=== PATIENT | male | born 1955 | race African-American/Black ===

== ENCOUNTER 2018-03-04 16:42 | Inpatient (IN) ==
[2018-03-04] MEDS ORDERED: LACTATED RINGERS 1,000 ML IV STA (16:54)
[2018-03-04 17:07] LABS: Basophils % 0.2 % (0.0-0.8); Eosinophils # 0.1 10*3/uL (0.0-0.87); Eosinophils % 0.5 % (0.00-10.9); Hematocrit 34.6 VOL% (42.0-52.0); Hemoglobin 11.5 GM/DL (14.0-18.0); Immature Granulocytes % 0.5 %; Immature Granulocytes Absolute 0.06 #; Lymphocytes # 1.2 10*3/uL (1.4-4.0); Lymphocytes % 9.6 % (21.2-54.2); Mean Corpuscular HGB Conc 33.2 GM/DL (32-36); Mean Corpuscular Hemoglobin 30 PG (27-34); Mean Corpuscular Volume 89.9 FL (87-102); Mean Platelet Volume 9.3 FL (9.6-12.0); Monocytes # 0.8 10*3/uL (0.11-0.8); Monocytes % 6.1 % (1.7-12.7); Neutrophils # 10.3 10*3/uL (1.4-7.4); Neutrophils % 83.1 % (38.7-73.9); Platelet Count 248 T/CUMM (130-400); Red Blood Count 3.85 MC/CUMM (3.8-5.5); Red Cell Distribution Width 12.4 % (9.3-17.3); White Blood Count 12.4 T/CUMM (4-12)
[2018-03-04 17:17] LABS: INR 0.9; PT Patient Result 9.9 SECS; Partial Thromboplastin Time 21.7 SECS (0-40)
[2018-03-04 17:23] LABS: Lactic Acid 1.8 MMOL/L (0.4-2.0)
[2018-03-04 17:24] LABS: Alanine Aminotransferase 108 U/L (16-61); Albumin 3.2 G/DL (3.4-5.0); Alkaline Phosphatase 106 U/L (45-117); Amylase 81 U/L (25-115); Aspartate Amino Transferase 114 U/L (0-37); Bilirubin,Total < 0.39 MG/DL (0.2-1.0); Blood Urea Nitrogen 16 MG/DL (7-18); Calcium 7.8 MG/DL (8.5-10.1); Glucose 156 MG/DL (74-106); Osmolality,Calculated 284.3 MOS/KG (273-304); Potassium 3.6 MMOL/L (3.5-5.1); Sodium 141 MMOL/L (136-145); Total Protein 7.1 G/DL (6.4-8.3)
[2018-03-04] MEDS ORDERED: ONDANSETRON 4 MG/2 ML VIAL IV PRN (18:32)
[2018-03-04] MEDS ORDERED: ZALEPLON 5 MG CAPSULE PO PRN (18:32)
[2018-03-04] MEDS ORDERED: MORPHINE 4 MG/1 ML VIAL IV PRN (18:32)
[2018-03-04] MEDS ORDERED: ACETAMINOPHEN 325 MG TABLET PO PRN (18:32)
[2018-03-04] MEDS ORDERED: ALBUTEROL 2.5 MG/3 ML NEB RESP TX PRN (18:32)
[2018-03-04 18:51] LABS: Barbiturates Screen,Urine Negative (Negative); Benzodiazepines Screen,Urine Negative (Negative); Cannabinoid Screen,Urine Negative (Negative); Opiate Screen,Urine Positive (Negative); Phencyclidine Screen,Urine Negative (Negative)
[2018-03-04 18:53] LABS: Apearance,Urine CLEAR (Clear); Bilirubin,Urine Negative (Negative); Blood, Urine Small mg/dL (Negative); Glucose,Urine (UA) Negative (Negative); Hyaline Casts,Urine 5 /LPF (0-3); Ketones,Urine Negative (Negative); Mucus,Urine Occasional /LPF (Occasional); Nitrite,Urine Negative (Negative); Protein,Urine 30 MG/DL; RBC,Urine 1 /HPF (0-4); Urine Color Yellow (Yellow); Urine Specific Gravity 1.043 (1.001-1.035); Urine Urobilinogen < 2.0 EU/DL (0.2-1.0); WBC,Urine 1 /HPF (0-6)
[2018-03-04] MEDS: LACTATED RINGERS 1,000 ML IV SCH (19:17)
[2018-03-04] MEDS: MORPHINE 4 MG/1 ML VIAL IV PRN (19:21)
[2018-03-04] MEDS ORDERED: GLUCAGON 1 MG VIAL IM PRN (19:42)
[2018-03-04] MEDS ORDERED: DEXTROSE 50% 25 GM/50 ML VIAL IV PRN (19:42)
[2018-03-04] MEDS: INSULIN REGULAR 100 UNIT/ML SUBCUT SCH (20:09)
[2018-03-04] MEDS: ENOXAPARIN 40 MG/0.4 ML SYRINGE SUBCUT SCH (21:05)
[2018-03-04] MEDS: GABAPENTIN 100 MG CAPSULE PO SCH (21:06)
[2018-03-04] MEDS: METOPROLOL TARTRATE 25 MG TABLET PO SCH (22:24)
[2018-03-05] MEDS: LACTATED RINGERS 1,000 ML IV SCH ×4 (03:26→23:20)
[2018-03-05] MEDS: MORPHINE 4 MG/1 ML VIAL IV PRN ×4 (03:27→20:58)
[2018-03-05 09:19] LABS: Basophils % 0.2 % (0.0-0.8); Eosinophils % 0.3 % (0.00-10.9); Hematocrit 27.8 VOL% (42.0-52.0); Hemoglobin 9.5 GM/DL (14.0-18.0); Immature Granulocytes % 0.3 %; Immature Granulocytes Absolute 0.03 #; Lymphocytes % 9.5 % (21.2-54.2); Mean Corpuscular HGB Conc 34.2 GM/DL (32-36); Mean Corpuscular Hemoglobin 30 PG (27-34); Mean Corpuscular Volume 87.4 FL (87-102); Mean Platelet Volume 9.7 FL (9.6-12.0); Monocytes % 9.7 % (1.7-12.7); Neutrophils # 8.6 10*3/uL (1.4-7.4); Platelet Count 203 T/CUMM (130-400); Red Blood Count 3.18 MC/CUMM (3.8-5.5); Red Cell Distribution Width 12.8 % (9.3-17.3); White Blood Count 10.7 T/CUMM (4-12)
[2018-03-05] MEDS: MORPHINE 4 MG/1 ML VIAL IM PRN (09:24)
[2018-03-05 09:43] LABS: Calcium 7.5 MG/DL (8.5-10.1); Osmolality,Calculated 283.4 MOS/KG (273-304); Potassium 3.7 MMOL/L (3.5-5.1)
[2018-03-05] MEDS ORDERED: ASPIRIN CHEW 81 MG TABLET PO ONE (10:00)
[2018-03-05] MEDS: PANTOPRAZOLE 40 MG TABLET PO SCH (10:14)
[2018-03-05] MEDS: METOPROLOL TARTRATE 25 MG TABLET PO SCH ×2 (10:15→21:38)
[2018-03-05] MEDS: GABAPENTIN 100 MG CAPSULE PO SCH ×4 (10:15→21:38)
[2018-03-05] MEDS: INSULIN REGULAR 100 UNIT/ML SUBCUT SCH ×4 (10:17→21:22)
[2018-03-05] MEDS ORDERED: ALBUTEROL 2.5 MG/3 ML NEB RESP TX ONE (14:31)
[2018-03-05] MEDS ORDERED: ceFAZolin 1,000 MG VIAL ONE (14:39)
[2018-03-05] MEDS ORDERED: MIDAZOLAM 2 MG/2 ML VIAL ONE (16:04)
[2018-03-05] MEDS ORDERED: ONDANSETRON 4 MG/2 ML VIAL ONE (16:04)
[2018-03-05] MEDS ORDERED: fentaNYL 100 MCG/2 ML VIAL ONE (16:04)
[2018-03-05] MEDS ORDERED: SEVOFLURANE 1 UNIT/15 MINUTE INH ONE (16:04)
[2018-03-05] MEDS ORDERED: PROPOFOL 200 MG/20 ML VIAL IV ONE (16:04)
[2018-03-05] MEDS ORDERED: LACTATED RINGERS 1,000 ML IV ONE (16:05)
[2018-03-05] MEDS ORDERED: SUCCINYLCHOLINE 200 MG/10 ML VIAL ONE (16:05)
[2018-03-05] MEDS ORDERED: ROCURONIUM 100 MG/10 ML VIAL IV ONE (16:05)
[2018-03-05] MEDS ORDERED: MEPERIDINE 25 MG/1 ML VIAL ONE (16:12)
[2018-03-05] MEDS ORDERED: MEPERIDINE 50 MG/1 ML VIAL IV PRN (16:14)
[2018-03-05] MEDS: ENOXAPARIN 40 MG/0.4 ML SYRINGE SUBCUT SCH (21:38)
[2018-03-05] MEDS: ceFAZolin 1,000 MG in SYRINGE 1 EACH IV SCH (21:38)
[2018-03-06] MEDS: MORPHINE 4 MG/1 ML VIAL IV PRN (00:25)
[2018-03-06 04:48] LABS: Basophils % 0.2 % (0.0-0.8); Eosinophils % 0.3 % (0.00-10.9); Hematocrit 29.2 VOL% (42.0-52.0); Hemoglobin 9.4 GM/DL (14.0-18.0); Immature Granulocytes % 0.7 %; Immature Granulocytes Absolute 0.08 #; Lymphocytes # 1.3 10*3/uL (1.4-4.0); Lymphocytes % 10.7 % (21.2-54.2); Mean Corpuscular HGB Conc 32.2 GM/DL (32-36); Mean Corpuscular Hemoglobin 29 PG (27-34); Mean Corpuscular Volume 91.3 FL (87-102); Mean Platelet Volume 9.6 FL (9.6-12.0); Monocytes # 1.5 10*3/uL (0.11-0.8); Neutrophils # 8.9 10*3/uL (1.4-7.4); Neutrophils % 75.1 % (38.7-73.9); Platelet Count 191 T/CUMM (130-400); Red Cell Distribution Width 12.9 % (9.3-17.3); White Blood Count 11.9 T/CUMM (4-12)
[2018-03-06 05:16] LABS: Calcium 7.7 MG/DL (8.5-10.1); Osmolality,Calculated 278.5 MOS/KG (273-304); Potassium 4.1 MMOL/L (3.5-5.1)
[2018-03-06] MEDS: LACTATED RINGERS 1,000 ML IV SCH (05:33)
[2018-03-06] MEDS: ceFAZolin 1,000 MG in SYRINGE 1 EACH IV SCH ×3 (06:23→21:33)
[2018-03-06] MEDS: GABAPENTIN 100 MG CAPSULE PO SCH ×3 (08:18→21:31)
[2018-03-06] MEDS: METOPROLOL TARTRATE 25 MG TABLET PO SCH ×2 (08:18→21:22)
[2018-03-06] MEDS: PANTOPRAZOLE 40 MG TABLET PO SCH (08:18)
[2018-03-06] MEDS: INSULIN REGULAR 100 UNIT/ML SUBCUT SCH ×4 (08:19→21:31)
[2018-03-06] MEDS: ASPIRIN CHEW 81 MG TABLET PO SCH (08:19)
[2018-03-06] MEDS: MORPHINE 4 MG/1 ML VIAL IM PRN ×3 (09:23→21:37)
[2018-03-06] MEDS: LEVOFLOXACIN 750 MG TABLET PO SCH (10:50)
[2018-03-06] MEDS: SIMVASTATIN 20 MG TABLET PO SCH (21:21)
[2018-03-06] MEDS: ENOXAPARIN 40 MG/0.4 ML SYRINGE SUBCUT SCH (21:21)
[2018-03-06] MEDS: FERROUS SULFATE 325 MG TABLET PO SCH (21:22)
[2018-03-07] MEDS: ceFAZolin 1,000 MG in SYRINGE 1 EACH IV SCH ×3 (05:14→21:42)
[2018-03-07] MEDS: MORPHINE 4 MG/1 ML VIAL IM PRN ×3 (05:22→21:34)
[2018-03-07 05:50] LABS: Calcium 7.7 MG/DL (8.5-10.1); Osmolality,Calculated 269.1 MOS/KG (273-304); Potassium 3.4 MMOL/L (3.5-5.1)
[2018-03-07] MEDS: INSULIN REGULAR 100 UNIT/ML SUBCUT SCH ×4 (07:57→21:30)
[2018-03-07] MEDS: amLODIPine 10 MG TABLET PO SCH (08:40)
[2018-03-07] MEDS: FERROUS SULFATE 325 MG TABLET PO SCH ×2 (08:41→21:30)
[2018-03-07] MEDS: PANTOPRAZOLE 40 MG TABLET PO SCH (08:42)
[2018-03-07] MEDS: ASPIRIN CHEW 81 MG TABLET PO SCH (08:49)
[2018-03-07] MEDS: LEVOFLOXACIN 750 MG TABLET PO SCH (08:49)
[2018-03-07] MEDS: GABAPENTIN 100 MG CAPSULE PO SCH ×3 (08:49→21:31)
[2018-03-07] MEDS: METOPROLOL TARTRATE 25 MG TABLET PO SCH ×2 (08:55→21:31)
[2018-03-07] MEDS ORDERED: [UNRECOGNIZED DRUG - REMARK] PO SCH (09:00)
[2018-03-07] MEDS ORDERED: [UNRECOGNIZED DRUG - REMARK] PO SCH (09:00)
[2018-03-07] MEDS ORDERED: POTASSIUM CHLORIDE 20 MEQ PACK PO ONE (14:57)
[2018-03-07] MEDS: ENOXAPARIN 40 MG/0.4 ML SYRINGE SUBCUT SCH (21:30)
[2018-03-07] MEDS: SIMVASTATIN 20 MG TABLET PO SCH (21:31)
[2018-03-08] MEDS: MORPHINE 4 MG/1 ML VIAL IV PRN ×2 (04:50→13:48)
[2018-03-08] MEDS: ceFAZolin 1,000 MG in SYRINGE 1 EACH IV SCH ×3 (05:16→21:59)
[2018-03-08] MEDS: INSULIN REGULAR 100 UNIT/ML SUBCUT SCH ×4 (08:11→21:47)
[2018-03-08 09:12] LABS: Basophils % 0.1 % (0.0-0.8); Eosinophils # 0.3 10*3/uL (0.0-0.87); Eosinophils % 2.6 % (0.00-10.9); Hemoglobin 8.9 GM/DL (14.0-18.0); Immature Granulocytes % 0.6 %; Immature Granulocytes Absolute 0.06 #; Lymphocytes # 0.9 10*3/uL (1.4-4.0); Lymphocytes % 8.9 % (21.2-54.2); Mean Corpuscular Hemoglobin 30 PG (27-34); Mean Corpuscular Volume 90.6 FL (87-102); Mean Platelet Volume 9.4 FL (9.6-12.0); Monocytes # 0.9 10*3/uL (0.11-0.8); Monocytes % 9.4 % (1.7-12.7); Neutrophils # 7.7 10*3/uL (1.4-7.4); Neutrophils % 78.4 % (38.7-73.9); Platelet Count 186 T/CUMM (130-400); Red Blood Count 2.98 MC/CUMM (3.8-5.5); Red Cell Distribution Width 12.8 % (9.3-17.3); White Blood Count 9.8 T/CUMM (4-12)
[2018-03-08] MEDS: METOPROLOL TARTRATE 25 MG TABLET PO SCH ×2 (09:30→21:57)
[2018-03-08] MEDS: LEVOFLOXACIN 750 MG TABLET PO SCH (09:30)
[2018-03-08] MEDS: FERROUS SULFATE 325 MG TABLET PO SCH ×2 (09:31→21:57)
[2018-03-08] MEDS: ASPIRIN CHEW 81 MG TABLET PO SCH (09:31)
[2018-03-08] MEDS: GABAPENTIN 100 MG CAPSULE PO SCH ×3 (09:31→21:57)
[2018-03-08] MEDS: PANTOPRAZOLE 40 MG TABLET PO SCH (09:31)
[2018-03-08] MEDS: amLODIPine 10 MG TABLET PO SCH (09:33)
[2018-03-08 09:38] LABS: Calcium 7.8 MG/DL (8.5-10.1); Potassium 3.5 MMOL/L (3.5-5.1)
[2018-03-08] MEDS ORDERED: KETOROLAC 30 MG/1 ML VIAL IV ONE (10:30)
[2018-03-08] MEDS ORDERED: POTASSIUM CHLORIDE 20 MEQ PACK PO ONE (17:56)
[2018-03-08] MEDS: SIMVASTATIN 20 MG TABLET PO SCH (21:57)
[2018-03-08] MEDS: ENOXAPARIN 40 MG/0.4 ML SYRINGE SUBCUT SCH (21:58)
[2018-03-09] MEDS: ceFAZolin 1,000 MG in SYRINGE 1 EACH IV SCH ×2 (05:21→17:31)
[2018-03-09 06:09] LABS: Calcium 7.8 MG/DL (8.5-10.1); Osmolality,Calculated 277.7 MOS/KG (273-304); Potassium 3.4 MMOL/L (3.5-5.1)
[2018-03-09] MEDS: INSULIN REGULAR 100 UNIT/ML SUBCUT SCH ×3 (09:36→17:31)
[2018-03-09] MEDS: LEVOFLOXACIN 750 MG TABLET PO SCH (09:56)
[2018-03-09] MEDS: amLODIPine 10 MG TABLET PO SCH (09:56)
[2018-03-09] MEDS: ASPIRIN CHEW 81 MG TABLET PO SCH (09:57)
[2018-03-09] MEDS: GABAPENTIN 100 MG CAPSULE PO SCH ×2 (09:57→17:31)
[2018-03-09] MEDS: KETOROLAC 30 MG/1 ML VIAL IV SCH ×2 (09:59→17:31)
[2018-03-09] MEDS: FERROUS SULFATE 325 MG TABLET PO SCH (09:59)
[2018-03-09] MEDS: METOPROLOL TARTRATE 25 MG TABLET PO SCH (09:59)
[2018-03-09] MEDS: PANTOPRAZOLE 40 MG TABLET PO SCH (09:59)
[2018-03-09] MEDS ORDERED: KETOROLAC 30 MG/1 ML VIAL IV SCH (10:00)
[2018-03-09 16:43] VITALS: BP 108/60
[2018-03-09] MEDS ORDERED: POTASSIUM CHLORIDE 20 MEQ PACK PO ONE (18:06)
== END 2018-03-09 16:50 | disposition swing bed (61) | DRG 515 ==
LOC: EDBD → EDUNIT# → N.ED 16:42 → N.EDINP 18:32 → N.ICU 18:48 → N.3E 03-06 13:51
PROVIDERS: ADMIT Surgery; ATTEND Surgery